=== PATIENT | female | born 1965 | race Caucasian/White ===

== ENCOUNTER 2016-08-09 12:27 | Day surgery (SDC) | payer OTHER ==
[~2016-08-09] VITALS: Ht 165.1 cm; Wt 141.1 kg
[~2016-08-09 12:27] MED LIST: ADVIL200 M1 PO; ROBAXIN-750750 MG PO; VICODIN EQUIVAL1 TAB PO
[2016-08-09 13:48] VITALS: BP 130/85
--- NOTE | 2016-08-09 14:21 | DIAGNOSTIC IMAGING REPORT ---
PROCEDURE: XR SPINE 2-3 VIEW-PAIN CLINIC INDICATION: L5-S1 TECHNIQUE: C-arm fluoroscopy provided to Dr. Caruso for therapeutic spinal injection. Fluoroscopy time 0.18-minute 21.9 mGy). COMPARISON: None. FINDINGS: AP and lateral C-arm views. There is a needle tip overlying the posterior spinal canal at the L5-S1 level with injection of a small amount of epidural contrast material. IMPRESSION: 1. C-arm fluoroscopy for therapeutic spinal injection (performed by Dr. Caruso).
--- NOTE | 2016-08-09 15:53 | PROCEDURE NOTE ---
DATE OF PROCEDURE: 08/09/2016 ATTENDING PHYSICIAN/PROVIDER: Jackson Caruso MD PREPROCEDURE DIAGNOSIS: 1. Left sciatica POSTPROCEDURE DIAGNOSIS: 1. Left sciatica PROCEDURE PERFORMED: 1. L5-S1 interlaminar epidural steroid injection INDICATIONS: The patient is referred by Dr. Ted Crow for lumbar epidural steroid injection. She complains of low back pain radiating down the left leg, sometimes severe, sometimes shock-like, made worse by sitting, and bending. The degree of disability is 10/10 for mood and enjoyment of life, and 8/10 for sleep and general activity. She had good improvement following an injection on 07/12/2016, but the pain has since recurred. MEDICAL/SURGICAL HISTORY: Medical history: Gastroesophageal reflux, menorrhagia, allergic rhinitis, chronic low back pain, mastalgia, hiatal hernia, thyroid nodule, degenerative joint disease, ovarian cyst. Past surgical history: Tonsillectomy, repair of broken leg, appendectomy, , dilatation and curettage, and cholecystectomy. MEDICATIONS: 1. Robaxin 750 mg orally 3 times daily. 2. Vicodin 5/325, half a tablet 4 hourly p.r.n. for pain. 3. Advil 800 mg orally every 6 hours. ALLERGIES: 1. NO KNOWN DRUG ALLERGIES. SOCIAL HISTORY: The patient is . She does not smoke or drink alcohol. 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 FAMILY HISTORY: Noncontributory. REVIEW OF SYSTEMS: Noncontributory. PHYSICAL EXAMINATION: GENERAL: A healthy-appearing woman in no acute distress. VITAL SIGNS: Weight 310 pounds, height 5 feet 5 inches. Blood pressure 152/81, pulse 87, respirations 20, temperature 98.6. Room air oxygen saturation 98% LAB/IMAGING: L3-L4 central disk protrusion with moderate central canal stenosis at L4-L5. Disk bulge and posterior element degenerative changes with mild central canal narrowing. L5-S1 disk bulge with mild narrowing of the left lateral recess, mild right L4- L5 and mild bilateral L5-S1 neural foraminal narrowing. IMPRESSION: 1. Left sciatica PLAN: Lumbar epidural steroid injection. DESCRIPTION OF PROCEDURE: After obtaining informed consent, the patient was taken to the procedure room and positioned in the prone position. The lumbar region was prepped with ChloraPrep and draped in sterile fashion. Lidocaine 1% was infiltrated over the L5-S1 interspace, and a 5 inch 18-gauge Tuohy needle was advanced to loss of resistance. Placement was confirmed by injection of 2 mL of Omnipaque 240, which showed good epidural spread. This was followed by injection of 10 mL of preservative-free normal saline containing 80 mg of Depo-Medrol. The needle was removed and a Band-Aid applied. The patient walked back comfortably to the recovery area where she was observed for 30 minutes and no neurological deficits developed. She was advised to follow up with Dr. Ted Crow.
== END 2016-08-09 13:49 | disposition home or self-care (01) ==
LOC: CDU SRH 12:27
PROVIDERS: Specialist
PROC: 3E0R33Z Introduction of Anti-inflammatory into Spinal Canal, Percutaneous Approach (ICD-10-PCS; principal; 2016-08-09 13:00)
DX: M54.32 Sciatica, left side (principal)
CPT/HCPCS: 55000